=== PATIENT | female | born 1990 | race Caucasian/White ===

== ENCOUNTER 2016-08-26 21:31 | Emergency (ER) | payer OTHER ==
[~2016-08-26] VITALS: Ht 152.4 cm; Wt 63.1 kg
[2016-08-26 21:45] VITALS: TEMP 37; Ht 152.4 cm; Wt 63.1 kg
[2016-08-26] MEDS ORDERED: ALPR0.25 PO (21:56)
[2016-08-26] MEDS ORDERED: PROPARACAINE HCL 0.5% OP SOLN 15 ML BTL OP STA (21:56)
[2016-08-26] MEDS ORDERED: SERT-234 PO (21:57)
[2016-08-26] MEDS ORDERED: CIPROFLOXACIN HCL 0.3% OP SOLN 2.5 ML BTL OP ONE (22:30)
[2016-08-26] MEDS ORDERED: NORCO 5/325MG HOME PACK PO ONE (22:30)
[2016-08-26 22:44] VITALS: BP 131/98; PULSE 76; O2SAT 97
--- NOTE | 2016-08-26 23:35 | EMERGENCY ROOM VISIT NOTE ---
ED Visit Note First contact with patient: 21:56 CHIEF COMPLAINT: Eye pain HISTORY OF PRESENT ILLNESS: This 26-year-old female patient presents to the emergency department complaining of pain in the left eye for the past 30 minutes. The patient uses and exfoliating product on her skin at night, and she was rubbing this on her face. The product is very gritty, almost sand-like , and she feels like she got a piece of sand into her left eye. She does wear contact lenses, but was not wearing them at the time of injury. There has been a constant moderate pain and irritation, redness and tearing in the eye. There is a mild blurring of vision at times and light bothers the eye. The vision has not been decreased over all. The patient rates the pain as sharp and 7/10. The patient has not had previous injuries to this eye. Tetanus shot is reportedly up to date. REVIEW OF SYSTEMS: A 6 system review of systems was completed with positives and pertinent negatives listed in the HPI. ALLERGIES: Amoxicillin MEDICATIONS: No chronic medications PMH: No chronic medication SOCIAL HISTORY: Employed and lives at home PHYSICAL EXAM: Vital Signs: Reviewed Nurse's notes, vital signs stable. Visual acuity 20/20 in the right and 20/25 in the left. GENERAL: This is a white female, in no acute distress, but who is uncomfortable from the eye problem. Well-developed well-nourished. EYES: The pupils are equal round and reactive to light and accommodation. EOMs are full and without tenderness. There is discharge of clear tears from the left eye which is injected. There is no foreign body visible under the eyelid even after lid eversion. Funduscopic exam reveals no hemorrhages, papilledema, or other abnormalities. No foreign body was seen embedded in the cornea under slit lamp exam. The cornea was clear and no hyphema was seen. Fluorescein uptake was observed with ultraviolet light significant for a corneal abrasion from 11:00 to 1:00. EMERGENCY DEPARTMENT COURSE: I examined the patient. Alcaine 2 drops were placed in the patient's left eye. A slit lamp exam was performed as above. Ciloxan two drops was placed in the patient's left eye. The patient was discharged home in good condition with a home pack of Vicodin. Current/Historical Medications Scheduled Sertraline (Zoloft), 200 MG PO DAILY Scheduled PRN Alprazolam (Xanax), 0.25 MG PO BID PRN for Anxiety Allergies Coded Allergies: Amoxicillin (Verified Allergy, Intermediate, HIVES, 08/26/16) Vital Signs Date Time Temp Pulse Resp B/P Pulse Ox O2 Delivery O2 Flow Rate FiO2 08/26/16 22:44 76 131/98 97 08/26/16 21:45 37.0 76 18 128/87 98 Room Air Medications Administered Medications (Trade) Dose Ordered Sig/Wili Route Start Time Stop Time Status Last Admin Dose Admin Proparacaine HCl (Alcaine 0.5% Oph Soln) 2 drops NOW STAT OP 08/26/16 21:56 08/26/16 21:57 DC 08/26/16 22:04 2 DROPS Ciprofloxacin HCl (Ciprofloxacin 0.3% Op Soln) 2 drops NOW ONCE OP 08/26/16 22:30 08/26/16 22:31 DC 08/26/16 22:41 2 DROPS Acetaminophen/ Hydrocodone Bitart (Dalton 5/325mg Home Pack) 1 homepack UD ONCE PO 08/26/16 22:30 08/26/16 22:31 DC 08/26/16 22:41 1 HOMEPACK Departure Information Impression Primary Impression: Left corneal abrasion Dispostion Home / Self-Care Condition GOOD Forms HOME CARE DOCUMENTATION FORM, IMPORTANT VISIT INFORMATION Patient Instructions A Signature Page, [facility] Additional Instructions You were seen and evaluated today on an emergency basis only. This is not a substitute for, or an effort to provide, complete comprehensive medical care. It is not possible to recognize and treat all injuries or illnesses in a single emergency department visit. For this reason it is recommended that you followup with your cnc milling machinist with any ongoing or persistent symptoms. Use Ciloxan Eye Drops: Instill 1-2 drops into the conjunctival sac every 2 hours while awake for 2 days and 1-2 drops every 4 hours while awake for the next 5 days Dalton (hydrocodone/acetaminophen) 5/325 mg (homepack) every 6 hours as needed for worsening breakthrough pain. Do not drink or drive on [place]. This medication will likely make you tired. Do not take Dalton and Tylenol at the same time as both contain acetaminophen. Dalton may cause constipation. You may wish to take an [id number]-[id number] stool softener like Colace if this occurs. You are welcome to return to the emergency department anytime with new, worsening, or concerning symptoms.
== END 2016-08-26 22:45 | disposition home or self-care (01) ==
LOC: C.EDB 21:33 → C.EDD 22:45
DX: S05.02XA Injury of conjunctiva and corneal abrasion without foreign body, left eye, initial encounter (principal); X58.XXXA Exposure to other specified factors, initial encounter

== ENCOUNTER 2017-06-04 20:26 | Emergency (ER) | payer OTHER ==
[~2017-06-04] VITALS: Ht 152.4 cm; Wt 61.7 kg
[~2017-06-04 20:26] MED LIST: ALPR0.25 PO; SERT-234 PO
[2017-06-04 20:29] VITALS: BP 137/88; PULSE 71; TEMP 37.2; O2SAT 97; Ht 152.4 cm; Wt 61.7 kg
[2017-06-04] MEDS ORDERED: XYLOCAINE 1%/SOD BICARB 20 ML VIAL INFIL ONE ×2 (21:18→21:30)
--- NOTE | 2017-06-04 21:58 | EMERGENCY ROOM VISIT NOTE ---
ED Visit Note First contact with patient: 21:06 I have personally seen and evaluated the patient with the Resident Physician Thatdwain. I agree with the diagnostic/management decisions and have personally been involved in these decisions and agree with the diagnosis.
--- NOTE | 2017-06-04 22:11 | EMERGENCY ROOM VISIT NOTE ---
History First contact with patient: 21:06 Chief Complaint: LACERATION/CUT (SUT/DERMABOND) Stated Complaint: LACERATION TO LT HAND, 2ND DIGIT Nursing Triage Summary: Pt reports she cut left index finger on a knife prior to arrival. History of Present Illness The patient is a 27 year old female who presents to the Emergency Room with complaints of laceration to left hand. The patient was carving pumpkins this evening. The knife accidentally slipped and cup the top of her left index finger. The patient is right handed. The cut is not deep and it didn't go to the bone. The patient denies weakness. The patient is up to date on her Tdap. Review of Systems A 10 point review of systems was negative unless stated above. 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 Eyes: Pupils equal, round, and reactive to light. Extraocular muscles are intact. No proptosis. ENT: Mucous membranes are moist. Oropharynx is clear. No sinus tenderness. Integumentary: Warm, dry, no rashes appreciated. 3 cm irregular laceration on the medial dorsum of the left index finger. Cut is deep is not down to tendon or bone Neurological: Patient awake, alert, and oriented x 3. Cranial nerves two through 12 grossly intact. Motor 5 out of 5 strength bilateral upper and lower extremities. Left index finger; 5/5 strength in all ranges of motion and at all joints. Intact sensation to tip of finger Medical Decision & Procedures Procedure Procedure: Laceration Repair Site: Dorsum of Left Index Finger Performed by: Dr. Edgar Villegas, [facility] Assist: Dr. Kvng Linn, [facility] Awning Hanger: Dr. Jeremy Ho, ER attending physician. Procedure: The procedure was explained to the patient including risks of bleeding, infection, nerve damage. Verbal consent was obtained. The procedure was done under sterile conditions. The base of the left index finger was sterilized with alcohol. 3 cc of buffered lidocaine without epinephrine was injected in either side at the base of the index finger. Adequate analgesia was achieve. 3 interrupted 5.0 Ethilon sutures were placed, achieving hemostasis. The patient tolerated the procedure without difficulty. There were no complications. EBL: 1 cc Complications: None ED Course The patient presents with a simple laceration of the left index finger. The differential includes simple laceration, tendon injury, bone injury, joint subluxation, cellulitis, wound infection. The patient had intact motor function and sensation to the finger. There was no evidence of deep injury to tendon or bone. There was no bony pain proximally or distally, therefore radiographs were not indicated. Suture were placed to approximate wound edges. Post-suture wound care was explained to patient including red flags for infection and instructions to come back to the ED if these symptoms are noted. The patient tolerated suture placement. 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 She was advised to either come back to the ED or see her primary care provider for suture removal in 12 days. The patient had an unremarkable hospital course and was discharged in stable condition. Medical Decision 21:15 - The patient was seen and evaluated by Dr. Edgar Villegas MD [facility] 21:30 - Case reviewed with Dr. Ho who will assess the patient 21:35 - Laceration repair performed 22:00 - Post-suture care explained to patient Discharge orders placed; patient discharged in stable condition. Head Trauma GCS Score: 15 Blood Pressure Screening Patient's blood pressure: Normal blood pressure Impression Primary Impression: Laceration Additional Impression: Laceration of finger Departure Information Dispostion Home / Self-Care Condition GOOD Referrals No Doctor, Assigned (PCP) Forms HOME CARE DOCUMENTATION FORM, IMPORTANT VISIT INFORMATION Patient Instructions Sutr Sylvia, [employer] [facility] Additional Instructions You had 3 sutures placed for an accident cut on your left index finger. Please come back in 12 days to have it removed or you can have them removed at your family doctors office. If you notice increasing pain, redness, swelling or purulent discharge, please see a provider or come back to the to make sure you do not have a cellulitis. It was a pleasure to be involved in your care and we wish you all the best. Problem Qualifiers
== END 2017-06-04 22:20 | disposition home or self-care (01) ==
LOC: C.EDB 20:27 → C.EDD 22:20
DX: S61.211A Laceration without foreign body of left index finger without damage to nail, initial encounter (principal); Y93.89 Activity, other specified; W26.0XXA Contact with knife, initial encounter; Z79.899 Other long term (current) drug therapy

== ENCOUNTER → 2017-12-01 | Outpatient (CLI) | payer OTHER | END | disposition home or self-care (01) | LOC: C.PAPS 12:19 | PROVIDERS: ATTEND Family Medicine | DX: Z12.72 Encounter for screening for malignant neoplasm of vagina (principal) ==